=== PATIENT | female | born 1940 | race Caucasian/White ===

== ENCOUNTER → 2018-03-21 09:09 | Outpatient (CLI) | payer MEDICARE ==
--- NOTE | ~2018-03-21 | EC ---
PATIENT:JESSICA FAITH DATE OF SERVICE: 03/21/18 SEX: F MEDICAL RECORD: [id number] DATE OF : 44 LOCATION:D.[facility] AGE OF PATIENT: 77 ADMISSION DATE: 03/21/18 REFERRING PHYSICIAN: INTERPRETING PHYSICIAN: AMADEO CURRAN MD ECHOCARDIOGRAM REPORT ECHO CHARGES 4 ECHO COMPLETE Date: 03/21 CLINICAL DIAGNOSIS: AVILES/CP,PALPS ECHOCARDIOGRAPHIC MEASUREMENTS (adult normal given) AC root (d.<3.7cm) 3.5 cm LV Septum d (<1.2 cm> 1.7 cm Valve Excursion 1.5 cm LV Septum (systole) 2.0 cm Left Atria (s.<4.0cm> 4.6 cm LVPW d(<1.2cm) 1.6 cm RV (d.<2.3cm) 4.1 cm LVPW (sytole) 2.2 cm LV diastole(<5.6CM) 4.9 cm MV E-F(>70mm/sec) cm LV systole 2.5 cm LVOT Diameter 1.7 cm MV exc.(>10mm) 1.2 cm Est.ejection fraction (50-75%) % DOPPLER: LVIT cm/sec A 130 cm/sec E 107 cm/sec LA cm/sec RVSP 43 mmHg LVOT 115 cm/sec AOP1/2T m/s Asc. Ao 266 cm/sec RVOT 143 cm/sec RA cm/sec PA 249 cm/sec AV Gradient Peak 28.39mmHg AV Mean 15.02mmHg AV Area 1.1 cm MV Gradient Peak 13.03mmHg MV Mean 4.50 mmHg MV Area cm COMMENTS: Primer Inspector: 2 KELLIE CHAVEZ Shift Supervisor Melting: 4 Dr. Curran TAPE# PACS Pericardial Effusion N DATE OF SERVICE: PROCEDURE: Transthoracic echocardiogram. FINDINGS: 1. Left ventricle shows mild concentric left ventricular hypertrophy, inflow characteristics consistent with diastolic dysfunction. 2. Mitral valve has mild mitral annular calcification, otherwise normal. 3. The left atrium is mildly dilated. 4. Aortic valve is mildly thickened and sclerotic is not well visualized. ECHOCARDIOGRAM REPORT [id number] JESSICA FAITH There appears to be mild aortic stenosis. 5. The right ventricle is mildly dilated. 6. The right atrium is normal size, normal function. 7. The left atrium is moderately dilated. 8. The RVSP is 43 mmHg. 9. Tricuspid valve has mild tricuspid regurgitation. There is no pericardial effusion. IVC was not well visualized. CONCLUSIONS: This is a difficult to visualize echo. Overall normal function with evidence of hypertensive heart disease and mild dilatation of left atrium and mild aortic stenosis. TRANSINT:[id number] Voice Confirmation ID: [id number] DOCUMENT ID: [id number] AMADEO CURRAN MD at 0945 CC: [id number] DICTATION DATE: 03/21/18 1143 FLYING I INSTRUCTOR: 03/21/18 1217 DEP CLI 03/21/18 [facility] [address] [place] [address]
== END | disposition home or self-care (01) ==
LOC: D.ECHO 03-11 10:35
DX: R06.09 Other forms of dyspnea (principal); R07.9 Chest pain, unspecified; R53.83 Other fatigue

== ENCOUNTER 2018-05-20 06:40 | Outpatient (CLI) | payer MEDICARE ==
[~2018-05-20] VITALS: Ht 162.6 cm; Wt 90.9 kg
--- NOTE | ~2018-05-20 | HEMODYNAMI ---
PATIENT:JESSICA FAITH MEDICAL RECORD: [id number] : 44 LOCATION:[facility] ADMISSION DATE: 05/20/18 Generatedon:05/20/20189:04 Patient name: JESSICA FAITH Patient #: [id number] SSN : : 1940 Date of study: 05/20/2018 Page: Of Hemodynamic Procedure Report Patient Data Patient Demographics Procedure consent was obtained First Name: JESSICA Gender: Female Last Name: VIANNEY : 1940 Middle Initial: E Age: 77 year(s) Patient #: [id number] Race: Unknown Additional ID: [id number] Contact details Address: [facility] [address] State: [place] City: [place] Zip code: [address] Past Medical History Allergies Allergen Reaction Date Comments Reported Other allergy 05/20/2018 DENZEL INHIBITORS, SULFA Admission Admission Data Admission Date: 05/20/2018 Admission Time: 6:40 Procedure Procedure Types Cath Procedure Diagnostic Procedure [facility] w/Coronaries Sedation Charges Moderate Sedation up to 15 minutes Peripheral Cath Diagnostic Procedure Cath Peripheral Jbfgk-Aqhrotp-Scp-Off Renal Arteriogram Procedure Description Procedure Date Procedure Date: 05/20/2018 Procedure Start Time: 8:36 Procedure End Time: 9:03 Procedure Staff Name Function Christoph Zaragoza MD Performing Physician Codi Austin RT Monitor Zay Ochoa RN Nurse Jim Chen RT Scrub Antonio Mcallister RN Handbell Choir Director Procedure Data Cath Procedure Fluoroscopy Diagnostic fluoroscopy Total fluoroscopy Time: 6.2 time: 6.2 min min Diagnostic fluoroscopy Total fluoroscopy dose: dose: 1256 mGy 1256 mGy Contrast Material Contrast Material Type Amount (ml) Isovue 300 126 Entry Location Entry Primary Successful Side Size Upsize Upsize Entry Closure Succes sful Closure Location (Fr) 1 (Fr) 2 (Fr) Remarks Device Remarks Femoral Right 5 Fr Exoseal artery Estimated blood loss: 5 ml Diagnostic catheters Device Type Used For End Catheter Placement MULTIPACK 3DRC 5Fr Right Coronary catheter Angiography MULTIPACK 3DRC 5Fr Renal catheter arteriography with flush -selective MULTIPACK 3DRC 5Fr Lower extremity catheter arteriography MULTIPACK JL 4.0 5Fr Left Coronary catheter Angiography MULTIPACK 3DRC 5Fr Lower extremity catheter arteriography MULTIPACK Pigtail 5 Fr LV Angiography catheter Procedure Complications No complications Procedure Medications Medication Administration Route Dosage 0.9% NaCl I.V. 100 ml/hr Oxygen etCO2 Nasal cannula 2 l/min Heparin Flush Bag added to field 2 bags (1000units/500ml NS) Lidocaine 2% added to field 20 Versed I.V. 1 mg Fentanyl I.V. 25 mcg Hemodynamics Rest Heart Rate: 69 (bpm) Pressure Samples Time Site Value (mmHg) Purpose Heart Use Rate(bpm) 8:57 LV 183/-3,19 EDP 73 8:58 AO 156/63(98) Pullback 73 8:58 LV 181/1,20 Pullback 73 Gradients Valve Time Site 1 Site 2 Mean SEP/DFP Peak To Heart Use (mmHg) (sec/min) Peak Rate (mmHg) (bpm) Aortic 8:58 LV AO 29 21 25 73 181/1,20 156/63(98) Calculations Valve P-P Mean Valve Index Valve Source Name Gradient Area Flow (cm2) Aortic 25 29 25 29 Snapshots Pre Cath Intra NCS Post Cath Vital Signs Time Heart Resp SPO2 etCO2 NIBP (mmHg) Rhythm Pain Sedation Rate (ipm) (%) (mmHg) Status Level (bpm) 8:24:34 70 22 98 37.6 174/78(137) NSR 0 (11) 10(A) , No pain 8:29:26 68 15 92 22.5 157/67(119) NSR 0 (11) 10(A) , No pain 8:34:13 69 16 94 41.3 153/73(113) NSR 0 (11) 10(A) , No pain 8:39:00 73 20 94 39.8 158/74(121) NSR 0 (11) 10(A) , No pain 8:43:51 73 18 93 42.8 160/68(124) NSR 0 (11) 10(A) , No pain 8:48:38 71 17 94 44.3 153/65(112) NSR 0 (11) 10(A) , No pain 8:53:24 73 19 95 43.6 148/68(116) NSR 0 (11) 10(A) , No pain 8:58:46 75 19 96 42.1 161/73(119) NSR 0 (11) 10(A) , No pain 9:03:33 68 21 94 34.6 154/68(122) NSR 0 (11) 10(A) , No pain Medications Time Medication Route Dose Verified Delivered Reason Notes Effe ctiveness by by 8:25:41 0.9% NaCl I.V. 100 Zay Zay Per ml/hr Lorigan Lorigan physician RN RN 8:25:53 Oxygen etCO2 2 Zay Zay Per Nasal l/min Lorigan Artiigan physician cannula RN RN 8:26:06 Heparin Flush added 2 Zay Zay used for Bag to bags Lorigan Lorigan procedure (1000units/500ml field RN RN NS) 8:26:18 Lidocaine 2% added 20ml Zay Zay for local to vial Lorigan Lorigan anesthetic field RN RN 8:28:17 Versed I.V. 1 mg Zay Zay for Lorigan Lorigan sedation RN RN 8:28:27 Fentanyl I.V. 25 Zay Zay for mcg Lorigan Lorigan sedation RN tow truck dispatcher Log Time Note 7:57:34 Time tracking: Regular hours (M-F 7:00 - 5:00) 7:57:38 Plan of Care:Hemodynamics will remain stable., Cardiac rhythm will remain stable., Comfort level will be maintained., Respiratory function will remain adequate., Patient/ family verbilizes understanding of procedure., Procedure tolerated without complication., Recovers from procedure without complications.. 8:07:22 Antonio Mcallister RN sent for patient. Start room use. 8:12:57 Patient received from Pre/Post Procedure Room to CCL 1 Alert and oriented. Tansferred to table in Supine position. 8:12:58 Warm blankets applied, and bladimir hugger turned on for patient comfort. 8:12:59 Correct patient and procedure confirmed by team. 8:13:00 Signed procedure consent form obtained from patient. 8:13:01 ECG and BP/O2 sat monitors applied to patient. 8:13:03 Full Disclosure recording started 8:20:34 Pre-procedure instructions explained to patient. 8:20:34 Pre-op teaching completed and patient verbalized understanding. 8:20:37 Family in patients room. 8:20:39 Patient NPO since Midnight. 8:20:58 Patient allergic to Other allergyACE INHIBITORS, SULFA 8:21:03 Is the patient allergic to Iodine/contrast media? No. 8:21:07 Is patient on blood thinner?Yes 8:21:16 PRE LOADED PLAVIX 8:23:27 Vital chart was started 8:23:50 Rhythm: sinus rhythm 8:23:55 Patient diabetic? No. 8:24:10 Previous problem with sedation/anesthesia? No ? 8:24:12 Snore? No 8:24:14 Sleep apnea? No 8:24:15 Deviated septum? No 8:24:16 Opens mouth fully? Yes 8:24:17 Sticks out tongue? Yes 8:24:19 Airway obstruction? No ? 8:24:22 Dentures? No ? 8:24:25 Pre procedure: right dorsailis pedis pulse 2+ Normal; easily identifiable; not easily obliterated 8:24:27 Modified Jovi's test Ulnar < 7 seconds 8:24:29 Patient pain scale 0/10 ?. 8:24:34 IV patent on arrival in left forearm with 0.9% NaCl at KVO. 8:24:36 Lab results completed and on chart. 8:24:41 Right Radial & Right Groin area was prepped with chlora-prep and draped in sterile fashion 8:24:42 Alarms reviewed by R. N. 8:24:43 Sharps counted by scrub and verified by R.N. 8:25:02 Use device set Femoral Dx 8:25:04 ACIST Syringe (71020) opened to sterile field. 8:25:04 Bag Decanter (2002) opened to sterile field. 8:25:05 Medline Cath Pack ([id number]) opened to sterile field. 8:25:05 DIAGNOSTIC WIRE .035 260cm J wire (256189) opened to sterile field. 8:25:06 ACIST Hand Control (31799) opened to sterile field. 8:25:07 ACIST Manifold (37554) opened to sterile field. 8:25:08 DIAGNOSTIC Multipack 5Fr catheter set (RG0012) opened to sterile field. 8:25:09 Tegaderm 4 x 4 (1626W) opened to sterile field. 8:25:10 SHEATH Prelude 5Fr 0.035 ([id number]) opened to sterile field. 8:25:41 0.9% NaCl 100 ml/hr I.V. was administered by Zay Ochoa RN; Per physician; 8:25:53 Oxygen 2 l/min etCO2 Nasal cannula was administered by Zay Ochoa RN; Per physician; 8:26:06 Heparin Flush Bag (1000units/500ml NS) 2 bags added to field was administered by Zay Ochoa RN; used for procedure; 8:26:18 Lidocaine 2% 20ml vial added to field was administered by Zay Ochoa RN; for local anesthetic; 8:27:38 Final Timeout: patient, procedure, and site verified with staff and physician. All members of the team are in agreement. 8:27:49 Right Radial & Left Groin site verified by team. 8:27:52 Physical assessment completed. ASA score P 2 - A patient with mild systemic disease as per Christoph Zaragoza MD. 8:27:56 Sedation plan: IV Moderate Sedation Medication:Versed, Fentanyl 8:28:17 Versed 1 mg I.V. was administered by Zay Ochoa RN; for sedation; 8:28:23 Baseline sample Acquired. 8:28:27 Fentanyl 25 mcg I.V. was administered by Zay Ochoa RN; for sedation; 8:36:06 Procedure started. 8:36:09 Local anesthetic to right femoral artery with Lidocaine 2% by Christoph Zaragoza MD.INITIAL ACCESS ONLY 8:37:43 A 5 Fr sheath was inserted into the Right Femoral artery 8:37:46 Zero performed for pressure channel P1 8:40:10 A MULTIPACK JL 4.0 5Fr catheter was advanced over the wire and used for Left Coronary Angiography. 8:43:32 Catheter removed. 8:44:24 A MULTIPACK 3DRC 5Fr catheter was advanced over the wire and used for Right Coronary Angiography. 8:47:17 A MULTIPACK 3DRC 5Fr catheter was advanced over the wire and used for Renal arteriography with flush -selective. 8:48:34 A MULTIPACK 3DRC 5Fr catheter was advanced over the wire and used for Lower extremity arteriography. LEFT 8:51:29 A MULTIPACK 3DRC 5Fr catheter was advanced over the wire and used for Lower extremity arteriography. RIGHT 8:53:13 Catheter removed. 8:54:09 A MULTIPACK Pigtail 5 Fr catheter was advanced over the wire and used for LV Angiography. 8:56:05 GLIDE WIRE ANGLE 260cm (JR4119) opened to sterile field. 8:57:21 LV gram done using DELGADO 8:57:22 LV hemodynamics recorded. 8:57:26 Injector settings: Ml/sec: 10, Volume: 20, 8:58:10 Catheter removed. 8:58:40 Sheath removed intact; hemostasis achieved with Exoseal to the Right Femoral artery. 8:58:42 Procedure ended.(Physican Out) 8:59:02 Fluoroscopy time 06.20 minutes. 8:59:06 Flurop Dose total: 1256 8:59:06 Fluoroscopy dose: 1256 mGy 8:59:30 Contrast amount:Isovue 300 126ml. 8:59:33 Sharps counted by scrub and verified by R.N. 8:59:34 Insertion/operative site no bleeding no hematoma. 8:59:36 Post-op/insertion site Right Femoral artery dressed using a 4 x 4 and Tegaderm. 8:59:40 Post right femoral artery:stable, clean and dry 8:59:41 Post Procedure Pulses reassessed and unchanged 8:59:48 Post-procedure physical assessment completed. ASA score P 2 - A patient with mild systemic disease as per Christoph Zaragoza MD. 8:59:52 Post procedure rhythm: unchanged. 8:59:56 Estimated blood loss: 5 ml 8:59:57 Post procedure instruction explained to patient.Patient verbalizes understanding. 8:59:58 Patient needs reinforcement of post procedure teaching. 9:00:27 Procedure type changed to Cath procedure, Diagnostic procedure, LHC, LHC w/Coronaries, Sedation Charges, Moderate Sedation up to 15 minutes, Peripheral Cath Diagnostic Procedure, Cath Peripheral, Mbimq-Uelqmgj-Xcx-Off, Renal Arteriogram 9:01:11 Procedure Complication : No complications 9:01:13 See physician's report for complete and final results. 9:01:51 EXOSEAL 5Fr (EX500) opened to sterile field. 9:02:31 Procedure and supply charges have been captured, reviewed, submitted and are correct. 9:03:27 Vital chart was stopped 9:03:29 Report given to Pre/Post Procedure Room. 9:03:31 Patient transfered to Pre/Post Procedure Room with Stretcher. 9:03:41 Procedure ended. 9:03:41 Full Disclosure recording stopped 9:03:45 End room use (Document Last) Device Usage Item Name Manufacture Quantity Catalog Number Hospital Part Current M inimal Lot# / Charge Number Stock Stock Serial# Code ACIST Syringe Acist 1 43563 [id number] 462246 [id number] 2 0 (20239) [employer] Bag Decanter Microtek 1 2001S [id number] 12578 [id number] 5 () Medical Inc. Medline Cath Cardinal 1 [id number] 485114 55356 165429 5 Pack Health ([id number]) DIAGNOSTIC WIRE St Blu 1 [id number] 594793 401011 837173 3 0 .035 260cm J wire (577661) ACIST Hand Acist 1 35618 314804 953552 585920 5 Control (58658) [employer] Inc ACIST Manifold Acist 1 25136 609159 087229 703378 5 (57686) [employer] Inc DIAGNOSTIC Cardinal 1 [id number] 070689 19034 043830 3 0 Multipack 5Fr Health catheter set ([id number]) Tegaderm 4 x 4 3M 1 1626W 055586 759751 098700 5 (1626W) SHEATH Prelude Merit 1 [id number] 879772 090039 231009 5 5Fr 0.035 Medical ([id number]-[id number]-90-035) MULTIPACK 3DRC Cardinal 1 114615 5 5Fr catheter Health MULTIPACK JL Cardinal 1 127566 5 4.0 5Fr Health catheter MULTIPACK Cardinal 1 945152 5 Pigtail 5 Fr Health catheter GLIDE WIRE Terumo 1 [id number] 768151 742740 821377 5 ANGLE 260cm (GP8714) EXOSEAL 5Fr Cardinal 1 EX500 198254 886634 514551 1 0 (EX500) Health Signature Audit [place] Stage Time Signature Unsigned Intra-Procedure 05/20/2018 Codi 9:04:20 AM Counts RT(R) Signatures Monitor : Codi Signature : Counts RT Date : Time : [facility] [address] [place] [address]
[2018-05-20] MEDS ORDERED: HYDROCHLOROTHIA25 MG PO (06:51)
[2018-05-20] MEDS ORDERED: KLOR-CON20 MEQ/PKT PO (06:51)
[2018-05-20] MEDS ORDERED: NORVASC10 MG PO (06:51)
[2018-05-20] MEDS ORDERED: NOLVADEX10 M1 PO (06:52)
[2018-05-20] MEDS ORDERED: CELEXA20 MG PO (06:52)
[2018-05-20] MEDS ORDERED: PEPCID40 MG PO (06:52)
[2018-05-20] MEDS ORDERED: CALCIUM 500 +1 EAC3 PO (06:52)
[2018-05-20] MEDS ORDERED: BAYER CHEWABLE81 MG PO (06:53)
[2018-05-20 07:03] VITALS: BP 171/74; BMI 34.4
[2018-05-20 07:11] LABS: BASOPHILS 0.4 % (0-2); EOSINOPHILS 4.2 % (0-7); HEMATOCRIT 40.8 % (36.0-48.0); HEMOGLOBIN 14.2 g/dL (12-16); IMMATURE GRANULOCYTES 0.2 % (0-5); LYMPHOCYTES 35.5 % (15-50); MCH 31.9 pg (26.0-34.0); MCHC 34.8 g/dL (31.0-37.0); MCV 91.7 fL (80.0-100.0); MEAN PLATELET VOLUME 9.8 fL (7.4-10.4); MONOCYTES 9.6 % (2-11); NEUTROPHILS 50.1 % (40-80); PLATELET COUNT 159 10x3/uL (130-400); RBC 4.45 10x6/uL (4.00-5.40); RDW 12.1 % (11.5-14.5); WBC 5.5 10x3/uL (4.8-10.8)
[2018-05-20 07:38] LABS: ANION GAP 11.3 mmol/L (8-16); CALCIUM 8.5 mg/dL (8.5-10.1); CARBON DIOXIDE 32.4 mmol/L (21.0-32.0); POTASSIUM - SERUM 3.7 mmol/L (3.5-5.1)
[2018-05-20 08:25] VITALS: Ht 162.6 cm; Wt 90.9 kg
== END 2018-05-20 11:25 | disposition home or self-care (01) ==
LOC: D.CATH 06:40
PROVIDERS: Internal Medicine Cardiovascular Disease
DX: I25.10 Atherosclerotic heart disease of native coronary artery without angina pectoris (principal); R94.39 Abnormal result of other cardiovascular function study; I70.213 Atherosclerosis of native arteries of extremities with intermittent claudication, bilateral legs; I35.0 Nonrheumatic aortic (valve) stenosis; Q23.1 Congenital insufficiency of aortic valve; K21.9 Gastro-esophageal reflux disease without esophagitis; Z79.82 Long term (current) use of aspirin; Z79.899 Other long term (current) drug therapy; Z88.2 Allergy status to sulfonamides; Z88.8 Allergy status to other drugs, medicaments and biological substances; Z01.812 Encounter for preprocedural laboratory examination

== ENCOUNTER 2018-06-09 10:00 | Inpatient (IN) | payer MEDICARE ==
[~2018-06-09] VITALS: Ht 162.6 cm; Wt 92.1 kg
--- NOTE | ~2018-06-09 | OP ---
PATIENT NAME: JESSICA FAITH MEDICAL RECORD: [id number] :44 LOCATION:[facility] ADMISSION DATE:06/10/18 SURGEON: HARVEY MARADIAGA MD DATE OF OPERATION: 06/10/2018 SURGEON: Harvey Maradiaga MD ASSISTANTS: Laura Lubin MD and NHI Narayanan OPERATION PERFORMED: 1. Aortic valve replacement (21 mm Rodriguez pericardial bioprosthesis). 2. Coronary artery bypass graft times 3 (left internal mammary artery to LAD, reverse saphenous vein graft from aorta to posterior descending artery and aorta to posterolateral branch of right coronary artery). 3. Endoscopic saphenous vein harvest. PREOPERATIVE DIAGNOSES: Aortic stenosis, coronary artery disease. POSTOPERATIVE DIAGNOSES: Aortic stenosis, coronary artery disease. ANESTHESIA: General endotracheal anesthesia. ESTIMATED BLOOD LOSS: Total cardiopulmonary bypass with Cell Saver retransfusion. COMPLICATIONS: None. SPECIMENS: Aortic valve leaflets. CONDITION: Stable. DISPOSITION: CV ICU. OPERATIVE FINDINGS: 1. The cardiac catheterization was reviewed with Dr. Curran prior to surgery who agreed that the patient had less ostial circumflex disease than listed at 80% on the cath report and that we would not graft the obtuse marginal vessel. 2. Endoscopic vein harvest from the patient's left leg due to peripheral vascular disease bilaterally with findings of a relatively smaller vein near the knee and this portion was used for the graft to the posterolateral. 3. Good quality internal mammary artery, the LAD was a 2.0-mm vessel with posterior plaque. 4. Posterior descending artery 1.5 mm. 5. Posterolateral branch 1.25 mm. 6. The aortic valve had severe calcification of the leaflets and the annulus, particularly the left and noncoronary cusp. There was significant calcification extending up above the sinotubular junction above the left coronary ostium near the site of aortotomy. 7. Large fatty heart. 8. Separation from cardiopulmonary bypass without vasopressors and hemodynamically stable. Transesophageal echocardiography confirmed no perivalvular leak and 1+ mitral regurgitation, same as preop. PROCEDURE INDICATIONS: Aortic stenosis and coronary artery disease. OPERATIVE REPORT [id number] JESSICA FAITH PROCEDURE NOTE IN DETAIL: The patient was brought to the operating suite. General anesthesia was obtained, the patient was prepped and draped. Greater saphenous vein was harvested from the patient's left lower extremity utilizing endoscopic technique. Side branches were divided with electrocautery. The vessel was ligated proximally and distally and removed. Side branches were then tied, later the leg was closed in 2 layers. Median sternotomy incision was made. Subcutaneous tissue divided with electrocautery. The sternum was divided with a saw. The left hemisternum was elevated. Left pleural cavity was entered. Left internal mammary vein was taken as a pedicle graft. Sternal retractor was placed. Pericardium was opened. Heparin was given. Aorta was cannulated. Dual stage venous cannula was inserted. The internal mammary was clipped distally and made ready for anastomosis. The patient was placed on cardiopulmonary bypass. Sites for distal anastomoses were selected. Retrograde cardioplegia cannula was inserted. The patient was cooled. Crossclamp was placed. Cardioplegia given antegrade through an angiocatheter, then retrograde and this repeated at 15 to 20 minute intervals including down the completed vein grafts and retrograde during the valve surgery. Distal anastomoses were performed in standard technique. Transverse aortotomy was performed. Valve was visualized. The valve leaflets were removed. Debridement was performed, thorough irrigation to ensure no loose bits of debris protecting the left main. Then, the valve was sized to 21 mm. Interrupted pledgeted sutures were placed from ventricular to aortic side through the valve sewing ring. The valve carefully lowered in place and sutures were tied. Inspecting the valve, there was no subvalvular obstruction and the left and right coronary were clearly visible. Aortotomy was closed. Two proximal anastomotic punch sites were made with a 4.0 and a 3.5-mm punch. Proximal anastomosis was performed. The patient was in steep Trendelenburg position. Crossclamp was removed. Transesophageal echocardiography was used for deairing with left ventricular apex de-aired and Valsalva technique. The patient resumed a spontaneous rhythm, fully rewarmed, weaned off cardiopulmonary bypass and was stable. The patient was decannulated. Transesophageal echocardiography confirmed that there was no perivalvular leak. Protamine was given. Drains were placed in the mediastinum and left pleural cavity. Ventricular pacing wire was placed. Hemostasis was assured. The graft laid appropriately. Left ventricular vent had been placed after the distal anastomosis and was removed as well as the retrograde sites were oversewn as was the aortic cannulation site and the atrial appendage cannulation site. With the patient stable, left chest was evacuated and irrigated. Pericardial fat was loosely reapproximated. Sternum was closed with wires. Fascia was closed. Subcutaneous tissue was closed. Skin was closed. Dermabond was placed. The needle and sponge counts were reported as correct and the patient was taken to the ICU in stable condition. TRANSINT:[id number] Voice Confirmation ID: [id number] DOCUMENT ID: [id number] OPERATIVE REPORT [id number] JESSICA FAITH DANIEL W MD at 0726 CC: AMADEO CURRAN MD [id number] DICTATION DATE: 06/10/18 1547 SHOE DYER: 06/10/18 1624 ADM [place] [id number] [place] [id number]
--- NOTE | ~2018-06-09 | TEE ---
PATIENT:JESSICA FAITH MEDICAL RECORD: [id number] LOCATION:[place] [address] AGE OF PATIENT: 77 ADMISSION DATE: 06/10/18 SEX: F REFERRING PHYSICIAN: INTERPRETING PHYSICIAN: JODY WEN MD TRANSESOPHAGEAL ECHOCARDIOGRAM Date: 06/10/18 THALIA CHARGE Y INDICATIONS: CABG/AVR PREMEDICATIONS: PATIENT'S RESPONSE PROCEDURE DOPPLER MEASUREMENTS: LVIT LA PA RA LVOT RVOT Asc. Ao AV Gradient Peak AV Mean AV Area MV Gradient Peak MV Mean MV Area INTERPRETATION: Doppler: 2-D: COLOR FLOW DOPPLER NORMAL SALINE STUDY: MISCELLANOUS: DIAGNOSIS: PLAN: President And Chief Commercial Officer:Rohit Zaragoza Cigar Inspector: Brandy CHAVEZ COMMENTS: DATE OF SERVICE: 06/11/2018 PROCEDURE: Transesophageal echo evaluation of valvular structures during aortic valve replacement and bypass surgery. FINDINGS: 1. Left ventricular chamber size is within normal limits. Left ventricular systolic function is normal. Overall ejection fraction estimated at 60%. 2. Left atrium, right atrium, and right ventricular chamber sizes are mildly TRANSESOPHAGEAL ECHOCARDIOGRAM REPORT [id number] AMY FAITH. 3. Valvular structures: Aortic valve demonstrates moderate to severe calcific aortic stenosis. Remaining valvular structures have normal structure and motion. 4. Doppler interrogation reveals only mild mitral regurgitation. Other than the aortic stenosis, no other valvular insufficiency or stenosis. 5. No evidence of pericardial effusion or left ventricular thrombus. TRANSINT:[id number] Voice Confirmation ID: [id number] DOCUMENT ID: [id number] at 1752 CC: [id number] DICTATION DATE: 06/11/18 1614 TITLE ONE KINDERGARTEN TEACHER: 06/11/18 1651 ADM IN [facility] [address] [place] [address]
--- NOTE | ~2018-06-09 | EC ---
PATIENT:JESSICA FAITH DATE OF SERVICE: 06/10/18 SEX: F MEDICAL RECORD: [id number] DATE OF : 42 LOCATION:[place] [address] AGE OF PATIENT: 77 ADMISSION DATE: 06/10/18 REFERRING PHYSICIAN: INTERPRETING PHYSICIAN: JODY NICOLE MD ECHOCARDIOGRAM REPORT ECHO CHARGES 5 ECHO LIMITED Date: 06/15 CLINICAL DIAGNOSIS: POST AVR, ASSESS LV FUN AND FOR PERICARIAL EFFUSION ECHOCARDIOGRAPHIC MEASUREMENTS (adult normal given) AC root (d.<3.7cm) cm LV Septum d (<1.2 cm> cm Valve Excursion cm LV Septum (systole) cm Left Atria (s.<4.0cm> 5.0 cm LVPW d(<1.2cm) cm RV (d.<2.3cm) 3.5 cm LVPW (sytole) cm LV diastole(<5.6CM) cm MV E-F(>70mm/sec) cm LV systole cm LVOT Diameter cm MV exc.(>10mm) cm Est.ejection fraction (50-75%) % DOPPLER: LVIT cm/sec A cm/sec E cm/sec LA cm/sec RVSP 42 mmHg LVOT cm/sec AOP1/2T m/s Asc. Ao cm/sec RVOT 119 cm/sec RA cm/sec PA 135 cm/sec AV Gradient Peak mmHg AV Mean mmHg AV Area cm MV Gradient Peak mmHg MV Mean mmHg MV Area cm COMMENTS: General Scrap Worker: Brandy CHAVEZ Paper Reel Operator: 1 Dr. Nicole TAPE# PACS Pericardial Effusion N DATE OF SERVICE: 06/15/2018 ECHOCARDIOGRAM FINDINGS: 1. Left ventricular chamber size is within normal limits. Left ventricular systolic function is normal. Overall ejection fraction is estimated at 55%. 2. Left atrium is enlarged at 5.0 cm. Right atrium and right ventricular chamber sizes are as well mildly dilated. 3. Valvular structures: Aortic valve is replaced with a prosthetic valve. ECHOCARDIOGRAM REPORT [id number] JESSICA FAITH Normal structure and function in this position. The remaining valvular structures have normal structure and motion. 4. Doppler interrogation only reveals agwg-nc-yvjzkwhh tricuspid regurgitation. No other valvular insufficiency or stenosis. Pulmonary systolic pressure is estimated at 42 mmHg. 5. No evidence of pericardial effusion or left ventricular thrombus. TRANSINT:[id number] Voice Confirmation ID: [id number] DOCUMENT ID: [id number] JODY NICOLE MD at 1642 CC: [id number] DICTATION DATE: 06/16/18 1210 ART GILDER: 06/16/18 1350 DIS IN 06/17/18 [place] [id number] [place] [id number]
--- NOTE | ~2018-06-09 | HP ---
PATIENT: JESSICA FAITH MEDICAL RECORD: [id number] ACCOUNT: [id number] LOCATION:[facility] : 42 ADMISSION DATE: 06/09/18 HISTORY AND PHYSICAL EXAMINATION JESSICA Wood (77yo, F) ID# [id number]. Date/Time05/27/2018 02:38IHDYC1942Service Dept.NPP_[facility] ClinicProviderJOSE MARADIAGA MDInsuranceMed Primary: [facility] (MEDICARE REPLACEMENT/ADVANTAGE - PPO) Insurance # : [id number] Policy/Group # : [id number] Referring Provider Name : ROHAN SANTACRUZ Employer Name : UNKNOWN Med Worker's Comp: [employer] WORK[employer] COMP Policy/Group # : [id number] Employer Name : [employer] Case # : [id number] Case Injury Date : 12/08/2014 Prescription: ORX - Member is eligible. Chief Complaint Coronary artery disease, PVD - peripheral vascular disease CAD//PVD referral, eval for treatment Patient's Care Team Referring Provider (): ROHAN SANTACRUZ: [address] [place] [address], , Guard Rail Installer: AMADEO CURRAN MD Patient's Pharmacies [id number] (ERX): [id number] [place] [address], , Vitals BP:158/70 sitting R arm 05/27/2018 02:51 pmBP Cuff Size:adult 05/27/2018 02:51 pmHR:78,reg,murmur 05/27/2018 02:51 pmHt:5 ft 4 in 05/27/2018 02:51 pmWt:200 lbs 05/27/2018 02:51 pmNotes:increasing fatigue, SOB with exertion. Sent to cardio for w/u after her dtr had an [place] at age 52 without prior symptoms. Found to have CAD as well as known murmur. Has also had "heaviness" and pain in her legs from aching to charley horses occasionally, like weekly. 05/27/2018 02:54 pmBMI:34.3 05/27/2018 02:51 pmAllergies Reviewed Allergies NKDApt states NONE, but did react to codeine 40 years agoMedications Reviewed Medications amLODIPine 10 mg dalzyv38/28/18 filledPRESCRIPTION SOLUTIONSAspir-81 81 mg tablet,delayed release Take 1 tablet(s) every day by oral route.05/21/18 Scott Hernandezcitalopram 20 mg eyrayr96/12/18 filledPRESCRIPTION SOLUTIONSfamotidine 40 mg uetpkc62/30/18 filledPRESCRIPTION SOLUTIONShydroCHLOROthiazide 25 mg amcggu93/28/18 filledPRESCRIPTION SOLUTIONSpotassium chloride ER 20 mEq tablet,extended release(part/cryst)05/24/18 filledPRESCRIPTION SOLUTIONStamoxifen 20 mg ioxzzj00/28/18 filledPRESCRIPTION SOLUTIONSVitamin D3 1,000 unit chewable tablet Take by oral route.05/27/18 Scott Hernandez mvi, vit c , vit d Problems Reviewed Problems Coronary arteriosclerosis - Onset: 05/21/2018 Aortic valve stenosis - Onset: 05/21/2018 HISTORY AND PHYSICAL [id number] JESSICA FAITH Atherosclerosis of arteries of the extremities - Onset: 05/21/2018, Bilateral Family History Reviewed Family History Mother- Hypertensive disorderDaughter- Polyp - colonFather- Myocardial infarction - ulcers, gout, hypertensionSocial History Reviewed Social History Cardiology Family history of heart disease?: Y Smoking Status: Never smoker High Cholesterol: Y High blood pressure: N Overweight: Y Obese: Y Diabetes: N Alcohol intake: Occasional Surgical History Reviewed Surgical History r wrist, colonoscopy, EGD, eye surgery, lumpectomy, breast, appendectomy, tubal ligation 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 HPI Dyspnea Reported by patient. Quality: dyspnea; can't catch breath Severity: moderate Onset/Timing: daily Context: with activity; at rest Alleviating Factors: rest Associated Symptoms: no chest pain; no palpitations; no orthopnea; no PND; no fever; no chills; no wheezing; no dietary indiscretion; no sputum producti on; no hemoptysis; no weight gain; no dyspepsia; can't walk around [employer] or [employer], without fatigue and SOB Fatigue Reported by patient. Quality: continuous; symptoms worse in the evening Severity: normal sleep patterns; change in exercise habits; mild Duration: intermittent; symptoms lasting over 2 weeks Timing: worse Context: symptoms do not improve on weekends/vacations; problems/stress at work or home Modifying Factors: no new stressors in life; taking vitamins HISTORY AND PHYSICAL [id number] FAITHJESSICA Sanchez Associated Symptoms: no drug/alcoho l withdrawal; no depression; no anxiety; no sleep disturbances; no snoring; periods of not breathing (apnea) have not been observed; no recent change in weight aortic stenosis, coronary disease, below-knee peripheral vascular disease she reports that she is had significant increased weakness since she had breast cancer about 5 years ago. Also some tiredness in both legs particularly below the knee but without discrete claudication. She also reports that when walking up the stairs with a basket of laundry when returning to the mailbox she has significant dyspnea. She denies angina syncope or palpitations ROS Additionally reports: as reviewed in the chart with the patient ROS as noted in the HPI Physical Exam Patient is a 77-year-old female. Constitutional: General Appearance well nourished and developed and healthy-appearing. Level of Distress NAD. Ambulation ambulating normally. Ears, Nose, Throat: Ears grossly normal hearing. Cardiovascular: Apical Impulse not displaced or no thrill. Heart Auscultation RRR; 3/6 holosystolic murmur. Arterial Pulses dorsalis pedis not palpable. Edema no edema and varicosities. Lungs: Repiratory Effort no dyspnea. Percussion no dullness or flatness. Auscultation no wheezing, rhonchi, or rales / crackles and breathing sounds normal and good air movement. Abdomen: Bowl Sounds normal. Inspection and Palpation no tenderness, guarding, or masses and soft and non-distended. Liver non-tender and no hepatomegaly. Spleen non-tender and no splenomegaly. Hernia none palpable. Musculoskeletal System: Gait And Stance normal gait and stance. Digits and Nails normal nails and no cyanosis. Joints, Bones, and Muscles normal strength and movement of all extremities. Neurologic: Cranial Nerves grossly intact. Sensation grossly intact. Lymph Nodes: Lymph Nodes no cervical LAD, supraclavicular LAD, axillary LAD, or inguinal LAD. Eyes: Lids and Conjunctivae no discharge or pallor and non-injected. Pupils PERRLA. Cornea grossly intact. EOM EOMI. Lens clear. Sclera non-icteric. Neck: Neck no masses, enlarged lymph nodes, or carotid bruits and supple and trachea midline. Thyroid no enlargement or nodules and non-tender. Skin: Inspection and Palpation no rash, lesions, ulcers, or jaundice. Assessment / Plan 1. Atherosclerosis of arteries of the extremities - Bilateral I70.209: Unspecified atherosclerosis of [place] arteries of extremities, unspecified extremity 2. Coronary arteriosclerosis HISTORY AND PHYSICAL [id number] JESSICA FAITH I25.10: Atherosclerotic heart disease of [place] coronary artery without angina pectoris 3. Aortic valve stenosis I35.0: Nonrheumatic aortic (valve) stenosis AORTIC VALVE STENOSIS: CARE INSTRUCTIONS Patient Instructions [place] Discussion Notes we discussed the pathophysiology of arterial sclerosis including peripheral vascular disease. It is likely that significant claudication has occurred due to aortic stenosis as her peripheral vascular disease is only below the knee bilaterally on the aortogram and runoff performed at the time of cardiac catheterization. recommend coronary bypass graft and aortic valve replacement, discussed valve choices, rationale for surgery, benefits, risks, and recovery. She states understanding and gives consent. I answered a long list of 11 questions for her daughter who lives in [place], her oldest daughter wa s with her. We also discussed postoperative cardiac rehabilitation. JOSE MARADIAGA MD at 0736 CC: [id number] DICTATION DATE: 05/27/18 1400 WATER FILTERER: SUGEY 06/02/18 1013 PRE IN [place] [address] [place] [address]
[~2018-06-09 10:00] MED LIST: BAYER CHEWABLE81 MG PO; CALCIUM 500 +1 EAC3 PO; CELEXA20 MG PO; HYDROCHLOROTHIA25 MG PO; KLOR-CON20 MEQ/PKT PO; NOLVADEX10 M1 PO; NORVASC10 MG PO; PEPCID40 MG PO
[2018-06-09 11:23] LABS: BASOPHILS 0.4 % (0-2); EOSINOPHILS 3.8 % (0-7); HEMATOCRIT 37.8 % (36.0-48.0); HEMOGLOBIN 13.4 g/dL (12-16); LYMPHOCYTES 35.7 % (15-50); MCH 32.4 pg (26.0-34.0); MCHC 35.4 g/dL (31.0-37.0); MCV 91.5 fL (80.0-100.0); MEAN PLATELET VOLUME 9.8 fL (7.4-10.4); MONOCYTES 9.5 % (2-11); NEUTROPHILS 50.6 % (40-80); PLATELET COUNT 157 10x3/uL (130-400); RBC 4.13 10x6/uL (4.00-5.40); RDW 12.3 % (11.5-14.5)
[2018-06-09] MEDS ORDERED: XANAX0.5 MG PO (11:24)
[2018-06-09] MEDS ORDERED: VITAMIN D3400 UNI1 PO (11:26)
[2018-06-09] MEDS ORDERED: CALTRATE 600 M600 M1 PO (11:26)
[2018-06-09] MEDS ORDERED: MULTI-DAY VITAM1 TAB PO (11:27)
[2018-06-09 11:32] LABS: APTT 30.6 SECONDS (22.8-39.4); INR 1.15 (0.85-1.17); PROTIME 14.3 SECONDS (11.6-15.0)
[2018-06-09 11:35] LABS: ALBUMIN 3.3 g/dL (3.4-5.0); CALCIUM 8.4 mg/dL (8.5-10.1); CARBON DIOXIDE 32.1 mmol/L (21.0-32.0); POTASSIUM - SERUM 3.1 mmol/L (3.5-5.1)
[2018-06-09 11:57] LABS: BILIRUBIN - TOTAL 0.44 mg/dL (0.2-1.3); PHOSPHOROUS 3.7 mg/dL (2.5-4.9); PROTEIN - SERUM 6.7 g/dL (6.4-8.2); T4 THYROXIN - FREE 0.9 ng/dL (0.76-1.46); THYROID STIMULATING HORMONE 1.25 uIU/mL (0.36-3.74); URIC ACID 9.7 mg/dL (2.6-7.2)
[2018-06-09 12:20] LABS: APPEARANCE SL CLDY (CLEAR); BACTERIA MANY /hpf (NONE SEEN); BILIRUBIN NEGATIVE (NEGATIVE); COLOR YELLOW (YELLOW); EPITHELIAL CELLS 0-5 /hpf (0-5); GLUCOSE NEGATIVE (NEGATIVE); KETONE NEGATIVE (NEGATIVE); NITRITE POSITIVE (NEGATIVE); PROTEIN NEGATIVE (NEGATIVE); SPECIFIC GRAVITY 1.015 (1.005-1.020); UROBILINOGEN NORMAL (NORMAL)
[2018-06-09 12:21] LABS: HYALINE CAST RARE /lpf (NONE SEEN); MUCUS <1+ /lpf (NONE SEEN)
[2018-06-10] VITALS (37 sets, daily range): BP systolic 107–155; BP diastolic 41–66; BMI 34.4; BMI 34.2
[2018-06-10] MEDS ORDERED: HAIR SKIN AND NAILS (06:11)
[2018-06-10 08:58] LABS: APPEARANCE SL CLDY (CLEAR); BACTERIA MANY /hpf (NONE SEEN); BILIRUBIN NEGATIVE (NEGATIVE); COLOR YELLOW (YELLOW); EPITHELIAL CELLS 0-5 /hpf (0-5); GLUCOSE NEGATIVE (NEGATIVE); KETONE NEGATIVE (NEGATIVE); MUCUS <1+ /lpf (NONE SEEN); NITRITE POSITIVE (NEGATIVE); PROTEIN 1+ mg/dL (NEGATIVE); SPECIFIC GRAVITY 1.015 (1.005-1.020); UROBILINOGEN NORMAL (NORMAL)
[2018-06-11] VITALS (53 sets, daily range): BP systolic 112–143; BP diastolic 49–69; Ht 162.6 cm; Wt 92.1 kg
[2018-06-11 06:24] LABS: HEMATOCRIT 32.1 % (36.0-48.0); HEMOGLOBIN 10.8 g/dL (12-16); MCHC 33.6 g/dL (31.0-37.0); MEAN PLATELET VOLUME 10.6 fL (7.4-10.4); RBC 3.38 10x6/uL (4.00-5.40)
[2018-06-11 06:52] LABS: PLATELET COUNT 70 10x3/uL (130-400); WBC 13.6 10x3/uL (4.8-10.8)
[2018-06-11 06:55] LABS: ALBUMIN 2.6 g/dL (3.4-5.0); BILIRUBIN - TOTAL 0.51 mg/dL (0.2-1.3); CALCIUM 7.6 mg/dL (8.5-10.1); CARBON DIOXIDE 27.6 mmol/L (21.0-32.0)
[2018-06-11 06:56] LABS: ANION GAP 14.9 mmol/L (8-16); CREATININE - SERUM 1.5 mg/dL (0.6-1.3); POTASSIUM - SERUM 4.5 mmol/L (3.5-5.1); PROTEIN - SERUM 4.8 g/dL (6.4-8.2)
[2018-06-11 07:27] LABS: PLATELET ESTIMATE DECREASED
[2018-06-12] VITALS (24 sets, daily range): BP systolic 110–151; BP diastolic 45–63
[2018-06-12 06:08] LABS: HEMATOCRIT 32.3 % (36.0-48.0); HEMOGLOBIN 10.6 g/dL (12-16); MCHC 32.8 g/dL (31.0-37.0); RBC 3.31 10x6/uL (4.00-5.40); RDW 13.3 % (11.5-14.5); WBC 14.2 10x3/uL (4.8-10.8)
[2018-06-12 06:10] LABS: MCV 97.6 fL (80.0-100.0)
[2018-06-12 06:25] LABS: ALBUMIN 2.5 g/dL (3.4-5.0); BILIRUBIN - TOTAL 0.49 mg/dL (0.2-1.3); CALCIUM 7.5 mg/dL (8.5-10.1); CARBON DIOXIDE 30.2 mmol/L (21.0-32.0); CREATININE - SERUM 1.4 mg/dL (0.6-1.3); PROTEIN - SERUM 5.3 g/dL (6.4-8.2)
[2018-06-12 06:30] LABS: ANION GAP 8.5 mmol/L (8-16); POTASSIUM - SERUM 3.7 mmol/L (3.5-5.1)
[2018-06-12 19:57] LABS: POTASSIUM - SERUM 3.7 mmol/L (3.5-5.1)
[2018-06-12 20:02] LABS: MAGNESIUM - SERUM 2.8 mg/dL (1.8-2.4)
[2018-06-13] VITALS (24 sets, daily range): BP systolic 112–158; BP diastolic 51–77
[2018-06-13 06:22] LABS: HEMATOCRIT 31.6 % (36.0-48.0); HEMOGLOBIN 10.6 g/dL (12-16); MCHC 33.5 g/dL (31.0-37.0); MCV 98.4 fL (80.0-100.0); MEAN PLATELET VOLUME 11.1 fL (7.4-10.4); RBC 3.21 10x6/uL (4.00-5.40); RDW 13.6 % (11.5-14.5); WBC 15.3 10x3/uL (4.8-10.8)
[2018-06-13 06:58] LABS: ALBUMIN 2.5 g/dL (3.4-5.0); ANION GAP 10.3 mmol/L (8-16); BILIRUBIN - TOTAL 0.56 mg/dL (0.2-1.3); CALCIUM 7.4 mg/dL (8.5-10.1); CARBON DIOXIDE 28.5 mmol/L (21.0-32.0); CREATININE - SERUM 1.4 mg/dL (0.6-1.3); POTASSIUM - SERUM 3.8 mmol/L (3.5-5.1); PROTEIN - SERUM 5.4 g/dL (6.4-8.2)
[2018-06-14] VITALS (24 sets, daily range): BP systolic 119–160; BP diastolic 37–78
[2018-06-14 06:34] LABS: HEMOGLOBIN 10.5 g/dL (12-16); MCH 31.9 pg (26.0-34.0); MCHC 32.8 g/dL (31.0-37.0); MCV 97.3 fL (80.0-100.0); MEAN PLATELET VOLUME 11.5 fL (7.4-10.4); RBC 3.29 10x6/uL (4.00-5.40); RDW 13.5 % (11.5-14.5); WBC 13.2 10x3/uL (4.8-10.8)
[2018-06-14 06:50] LABS: ALBUMIN 2.6 g/dL (3.4-5.0); ANION GAP 9.8 mmol/L (8-16); BILIRUBIN - TOTAL 0.54 mg/dL (0.2-1.3); CALCIUM 7.6 mg/dL (8.5-10.1); CARBON DIOXIDE 27.8 mmol/L (21.0-32.0); CREATININE - SERUM 1.2 mg/dL (0.6-1.3); POTASSIUM - SERUM 3.6 mmol/L (3.5-5.1); PROTEIN - SERUM 5.8 g/dL (6.4-8.2)
[2018-06-15] VITALS (25 sets, daily range): BP systolic 118–155; BP diastolic 47–61
[2018-06-15 05:15] LABS: HEMATOCRIT 30.1 % (36.0-48.0); MCH 31.8 pg (26.0-34.0); MCHC 33.2 g/dL (31.0-37.0); MCV 95.9 fL (80.0-100.0); MEAN PLATELET VOLUME 10.9 fL (7.4-10.4); RBC 3.14 10x6/uL (4.00-5.40); RDW 13.7 % (11.5-14.5); WBC 10.3 10x3/uL (4.8-10.8)
[2018-06-15 05:43] LABS: ALBUMIN 2.3 g/dL (3.4-5.0); ANION GAP 12.8 mmol/L (8-16); BILIRUBIN - TOTAL 0.54 mg/dL (0.2-1.3); CALCIUM 7.2 mg/dL (8.5-10.1); CARBON DIOXIDE 26.6 mmol/L (21.0-32.0); POTASSIUM - SERUM 3.4 mmol/L (3.5-5.1); PROTEIN - SERUM 5.4 g/dL (6.4-8.2)
[2018-06-16] VITALS (25 sets, daily range): BP systolic 131–159; BP diastolic 47–64
[2018-06-17] VITALS (15 sets, daily range): BP systolic 120–154; BP diastolic 47–58
[2018-06-17] MEDS ORDERED: CORDARONE200 MG PO (12:08)
[2018-06-17] MEDS ORDERED: LOPRESSOR25 MG PO (12:09)
[2018-06-17] MEDS ORDERED: LASIX40 MG PO (12:10)
[2018-06-17] MEDS ORDERED: LEVAQUIN750 MG PO (12:12)
== END 2018-06-17 16:00 | disposition home or self-care (01) | DRG 220 ==
LOC: D.SDCHOLD 10:00 → D.CVICU 06-10 05:05 → D.SDCHOLD 06-10 07:30 → D.CVICU 06-10 10:57
PROVIDERS: Thoracic Surgery (Cardiothoracic Vascular Surgery)
PROC: 021109W Bypass Coronary Artery, Two Arteries from Aorta with Autologous Venous Tissue, Open Approach (ICD-10-PCS; 2018-06-10)
PROC: 06BQ4ZZ Excision of Left Saphenous Vein, Percutaneous Endoscopic Approach (ICD-10-PCS; 2018-06-10)
PROC: 5A1221Z Performance of Cardiac Output, Continuous (ICD-10-PCS; 2018-06-10)
PROC: B24BZZ4 Ultrasonography of Heart with Aorta, Transesophageal (ICD-10-PCS; 2018-06-10)
PROC: 02100Z9 Bypass Coronary Artery, One Artery from Left Internal Mammary, Open Approach (ICD-10-PCS; principal; 2018-06-10 07:30)
PROC: 02RF08Z Replacement of Aortic Valve with Zooplastic Tissue, Open Approach (ICD-10-PCS; 2018-06-10 07:30)
PROC: 05HY33Z Insertion of Infusion Device into Upper Vein, Percutaneous Approach (ICD-10-PCS; 2018-06-16)
DX: I35.0 Nonrheumatic aortic (valve) stenosis (principal); N39.0 Urinary tract infection, site not specified; J98.11 Atelectasis; I25.10 Atherosclerotic heart disease of native coronary artery without angina pectoris; I10 Essential (primary) hypertension; E11.9 Type 2 diabetes mellitus without complications; B96.89 Other specified bacterial agents as the cause of diseases classified elsewhere; I48.91 Unspecified atrial fibrillation; F41.8 Other specified anxiety disorders; R79.89 Other specified abnormal findings of blood chemistry; I70.219 Atherosclerosis of native arteries of extremities with intermittent claudication, unspecified extremity; R41.0 Disorientation, unspecified

== ENCOUNTER → 2018-07-09 09:14 | Outpatient (CLI) | payer MEDICARE ==
[2018-06-11 10:04] VITALS: BMI 36.0
[~2018-07-09 09:14] MED LIST changes: +CALTRATE 600 M600 M1 PO; +CORDARONE200 MG PO; +HAIR SKIN AND NAILS; +LASIX40 MG PO; +LEVAQUIN750 MG PO; +LOPRESSOR25 MG PO; +MULTI-DAY VITAM1 TAB PO; +VITAMIN D3400 UNI1 PO; +XANAX0.5 MG PO
[2018-07-09 10:25] LABS: HEMATOCRIT 37.2 % (36.0-48.0); HEMOGLOBIN 12.5 g/dL (12-16); MCH 30.4 pg (26.0-34.0); MCHC 33.6 g/dL (31.0-37.0); MCV 90.5 fL (80.0-100.0); MEAN PLATELET VOLUME 9.9 fL (7.4-10.4); RBC 4.11 10x6/uL (4.00-5.40); WBC 6.8 10x3/uL (4.8-10.8)
[2018-07-09 10:43] LABS: ALBUMIN 3.4 g/dL (3.4-5.0); ANION GAP 12.4 mmol/L (8-16); BILIRUBIN - TOTAL 0.38 mg/dL (0.2-1.3); CARBON DIOXIDE 25.4 mmol/L (21.0-32.0); CREATININE - SERUM 1.1 mg/dL (0.6-1.3); POTASSIUM - SERUM 3.8 mmol/L (3.5-5.1); PROTEIN - SERUM 7.1 g/dL (6.4-8.2)
== END | disposition home or self-care (01) ==
LOC: D.LAB 09:14
PROVIDERS: Thoracic Surgery (Cardiothoracic Vascular Surgery)
DX: J91.8 Pleural effusion in other conditions classified elsewhere (principal); D64.9 Anemia, unspecified

== ENCOUNTER → 2019-04-21 10:37 | Outpatient (CLI) | payer MEDICARE, OTHER ==
[2018-06-11 10:04] VITALS: BMI 36.0
--- NOTE | 2019-04-27 14:16 | EC ---
PATIENT:JESSICA FAITH DATE OF SERVICE: 04/21/19 SEX: F MEDICAL RECORD: [id number] DATE OF : 42 [facility]: 78 ADMISSION DATE: 04/21/19 REFERRING PHYSICIAN: INTERPRETING PHYSICIAN: DAT BONILLA MD ECHOCARDIOGRAM REPORT ECHO CHARGES 4 ECHO COMPLETE Date: 04/21/19 CLINICAL DIAGNOSIS: AVR H/O HTN/CAD/CABG/A-FIB ECHOCARDIOGRAPHIC MEASUREMENTS (adult normal given) AC root (d.<3.7cm) 2.8 cm LV Septum d (<1.2 cm> 1.5 cm Valve Excursion 1.6 cm LV Septum (systole) 1.9 cm Left Atria (s.<4.0cm> 5.2 cm LVPW d(<1.2cm) 1.5 cm RV (d.<2.3cm) 2.9 cm LVPW (sytole) 2.1 cm LV diastole(<5.6CM) 5.0 cm MV E-F(>70mm/sec) cm LV systole 2.4 cm LVOT Diameter 1.7 cm MV exc.(>10mm) cm Est.ejection fraction (50-75%) % DOPPLER: LVIT cm/sec A 160 cm/sec E 138 cm/sec LA cm/sec RVSP 39.0 mmHg LVOT 124 cm/sec AOP1/2T m/s Asc. Ao 258 cm/sec RVOT 117 cm/sec RA cm/sec PA 120 cm/sec AV Gradient Peak 27.0 mmHg AV Mean 14.3 mmHg AV Area 1.2 cm MV Gradient Peak 16.1 mmHg MV Mean 6.3 mmHg MV Area cm COMMENTS: OP - HC Rn Managed Care: Sebastian PRICE YONY Cloth Pattern Maker: 3 Dr. Terrell TAPE# PACS Pericardial Effusion N DATE OF SERVICE: 04/21/2019 Adequate 2-D echo, color-flow and spectral Doppler, and M-mode. LVH is present. LV internal dimensions are normal. Wall motion is normal. EF is greater than 55%. Prosthetic aortic valve is noted with tissue type with acceptable Doppler velocity. No significant AI. Left atrium is dilated at 5.2 cm. Mitral valve shows no prolapse. Mild MR. Right-sided chambers are grossly normal. Trace TR. ECHOCARDIOGRAM REPORT [id number] JESSICA FAITH TRANSINT:[id number] Voice Confirmation ID: [id number] DOCUMENT ID: [id number] DAT BONILLA MD at 1416 CC: [id number] DICTATION DATE: 04/23/19 1335 WEB SERVICES MANAGER: 04/23/19 1544 DEP CLI 04/21/19 [place] [id number] [place] [id number]
== END | disposition home or self-care (01) ==
LOC: D.HCCARDIO 10:37
PROVIDERS: ATTEND Internal Medicine Interventional Cardiology
DX: I10 Essential (primary) hypertension (principal)

== ENCOUNTER → 2020-05-10 09:01 | Outpatient (CLI) | payer MEDICARE, OTHER ==
[2018-06-11 10:04] VITALS: BMI 36.0
--- NOTE | 2020-05-12 08:35 | EC ---
PATIENT:JESSICA FAITH DATE OF SERVICE: 05/10/20 SEX: F MEDICAL RECORD: [id number] DATE OF : 42 LOCATION:[facility] AGE OF PATIENT: 79 ADMISSION DATE: 05/10/20 REFERRING PHYSICIAN: INTERPRETING PHYSICIAN: DAT BONILLA MD ECHOCARDIOGRAM REPORT ECHO CHARGES 4 ECHO COMPLETE Date: 05/10/20 CLINICAL DIAGNOSIS: CAD/AVR HX DYSPNEA/MR/HTN ECHOCARDIOGRAPHIC MEASUREMENTS (adult normal given) AC root (d.<3.7cm) 3.1 cm LV Septum d (<1.2 cm> 1.6 cm Valve Excursion 0.6 cm LV Septum (systole) 1.8 cm Left Atria (s.<4.0cm> 3.9 cm LVPW d(<1.2cm) 1.5 cm RV (d.<2.3cm) 2.7 cm LVPW (sytole) 1.8 cm LV diastole(<5.6CM) 4.6 cm MV E-F(>70mm/sec) cm LV systole 3.1 cm LVOT Diameter 1.8 cm MV exc.(>10mm) 0.90 cm Est.ejection fraction (50-75%) % DOPPLER: LVIT cm/sec A 83.0 cm/sec E 61.0 cm/sec LA cm/sec RVSP 40 mmHg LVOT 128 cm/sec AOP1/2T m/s Asc. Ao 195 cm/sec RVOT 58 cm/sec RA cm/sec PA 121 cm/sec AV Gradient Peak 15.23mmHg AV Mean 8.97 mmHg AV Area 1.8 cm MV Gradient Peak 7.79 mmHg MV Mean 3.60 mmHg MV Area cm COMMENTS: Pearl Fisherman: 2 KELLIE CHAVEZ Railcar Switcher: 3 Dr. Terrell TAPE# PACS Pericardial Effusion N DATE OF SERVICE: Adequate 2D, color flow imaging, spectral Doppler, and M-Mode. LVH is present. LV internal dimensions are normal. Wall motion is normal. EF is greater than or equal to 55%. Prosthetic tissue aortic valve was noted with acceptable Doppler velocity. No significant AI. Left atrium is normal. Mitral valve shows no prolapse. Trace MR. Right-sided chambers are grossly normal. Trace TR. ECHOCARDIOGRAM REPORT [id number] JESSICA FAITH TRANSINT:[id number] Voice Confirmation ID: [id number] DOCUMENT ID: [id number] DAT BONILLA MD at 0835 CC: [id number] DICTATION DATE: 05/11/20 0841 TIRE FINISHER: 05/11/20 1057 DEP CLI 05/10/20 [place] [id number] [place] [id number]
== END | disposition home or self-care (01) ==
LOC: D.HCCECHO 08:30
PROVIDERS: ATTEND Internal Medicine Interventional Cardiology
DX: R06.00 Dyspnea, unspecified (principal)

== ENCOUNTER 2021-01-26 10:30 | Day surgery (SDC) | payer MEDICARE, OTHER ==
[~2021-01-26] VITALS: Ht 162.6 cm; Wt 90.9 kg
[2021-01-26 10:54] LABS: BASOPHILS 0.4 % (0-2); EOSINOPHILS 3.7 % (0-7); HEMOGLOBIN 13.9 g/dL (12-16); IMMATURE GRANULOCYTES 0.4 % (0-5); LYMPHOCYTE ABS# 1.31 10x3/uL (1.18-3.74); LYMPHOCYTES 24.5 % (15-50); MCH 32.4 pg (26.0-34.0); MCHC 33.9 g/dL (31.0-37.0); MCV 95.6 fL (80.0-100.0); MEAN PLATELET VOLUME 10.4 fL (7.4-10.4); MONOCYTES 8.6 % (2-11); NEUTROPHIL ABS# 3.34 10x3/uL (1.56-6.13); NEUTROPHILS 62.4 % (40-80); PLATELET COUNT 218 10x3/uL (130-400); RBC 4.29 10x6/uL (4.00-5.40); RDW 12.6 % (11.5-14.5); WBC 5.4 10x3/uL (4.8-10.8)
[2021-01-26 11:01] LABS: ANION GAP 14.4 mmol/L (8-16); CARBON DIOXIDE 25.7 mmol/L (21.0-32.0); POTASSIUM - SERUM 4.1 mmol/L (3.5-5.1)
[2021-01-26 12:13] VITALS: Ht 162.6 cm; Wt 90.9 kg
--- NOTE | 2021-01-26 15:10 | NUR ---
1400 IV REMOVED AND PRESSURE HELD.
--- NOTE | 2021-01-26 16:57 | OP ---
PATIENT NAME: JESSICA FAITH MEDICAL RECORD: [id number] :42 LOCATION:D.[facility] ADMISSION DATE: SURGEON: JUAN CARLOS ROSS MD DATE OF OPERATION: 01/26/2021 DATE OF SERVICE: 01/26/2021 PREOPERATIVE DIAGNOSES: History of colon polyps, positive FIT test, abdominal pain. PROCEDURE: Colonoscopy. MEDICATION: Propofol per anesthesia. DESCRIPTION OF PROCEDURE: Colonoscopy was performed. The colonoscope was inserted through the rectum and advanced to the cecum, identified by the ileocecal valve and the appendiceal orifice. There were a few sigmoid diverticula seen in the sigmoid colon. In the ascending colon was a 4 mm ascending colon polyp. This was removed with hot biopsy forceps. The remainder of the exam was normal. The patient tolerated the procedure well. FINAL DIAGNOSES: Few sigmoid diverticula, ascending colon polyp removed with hot biopsy forceps. PLAN: Check histology results. Advance diet. Return to GI office. TRANSINT:[id number] Voice Confirmation ID: [id number] DOCUMENT ID: [id number] JUAN CARLOS ROSS MD at 1657 CC: [id number] DICTATION DATE: 01/26/21 1312 BOILER HELPER: 01/26/[address] [facility] 01/26/21 [place] [id number] [place] [address]
== END 2021-01-26 14:15 | disposition home or self-care (01) ==
LOC: D.OPS 10:30
PROVIDERS: Anesthesiology; ATTEND Internal Medicine Gastroenterology
DX: Z86.010 Personal history of colon polyps (principal); R10.9 Unspecified abdominal pain; K63.5 Polyp of colon; K57.30 Diverticulosis of large intestine without perforation or abscess without bleeding; R85.89 Other abnormal findings in specimens from digestive organs and abdominal cavity; K22.70 Barrett's esophagus without dysplasia